=== PATIENT | male | born 1960 | race Caucasian/White ===

== ENCOUNTER 2017-02-23 10:44 | Emergency (ER) | payer MEDICARE, OTHER | END 2017-02-23 14:07 | disposition home or self-care (01) | LOC: ER 10:44 | DX: S01.01XA Laceration without foreign body of scalp, initial encounter (principal); F41.9 Anxiety disorder, unspecified; F32.9 Major depressive disorder, single episode, unspecified; X58.XXXA Exposure to other specified factors, initial encounter ==